=== PATIENT | female | born 1945 ===

== ENCOUNTER → 2018-09-08 | Outpatient (REF) ==
[2018-09-08 13:14] LABS: C-REACTIVE PROTEIN 2.1 mg/dL (0.0-0.9)
[2018-09-08 13:42] LABS: THYROID STIMULATING HORMONE 4.72 uIU/mL (0.465-4.680)
== END ==
LOC: ZLAB.WCH 12:51
PROVIDERS: Internal Medicine
DX: Z01.89 Encounter for other specified special examinations (principal)

== ENCOUNTER → 2018-09-22 | Outpatient (REF) | LOC: ZLAB.WCH 16:01 | DX: Z01.89 Encounter for other specified special examinations (principal) ==

== ENCOUNTER → 2018-11-28 | Outpatient (REF) | LOC: ZLAB.WCH 16:31 | DX: Z01.89 Encounter for other specified special examinations (principal) ==

== ENCOUNTER → 2019-08-14 | Outpatient (CLI) | payer MEDICARE, BC | LOC: MC.RAD 14:19 | DX: Z12.31 Encounter for screening mammogram for malignant neoplasm of breast (principal) ==

== ENCOUNTER 2019-11-04 08:26 | Observation (INO) | payer MEDICARE, BC ==
[~2019-11-04] VITALS: Ht 165.1 cm; Wt 76.1 kg
[2019-11-04] MEDS ORDERED: FLOMAX 0.40.4 MG/CAP PO (08:34)
[2019-11-04 08:54] LABS: COLLECTION METHOD CLEAN CATCH
[2019-11-04 09:03] LABS: BASO # 0.1 (0.0-0.2); BASO % 0.7 % (0.0-2.0); EOS # 0.2 (0.0-0.7); EOS % 1.4 % (0-4.0); GRAN # 8.1 (1.4-6.5); GRAN % 72.9 % (42.2-75.2); LYMPH # 1.5 (1.2-3.4); LYMPH % 13.8 % (20.0-51.0); MEAN CELL VOLUME 97 fl (80.0-100.0); MEAN CORPUSCULAR HEMOGLOBIN 32 pg (27.0-31.0); MEAN CORPUSCULAR HGB CONC 33 g/dl (33.0-37.0); MEAN PLATELET VOLUME 10.3 fl (7.4-10.4); MONO # 1.2 (0.1-0.6); MONO % 10.5 % (1.7-9.3); PLATELET COUNT 320 K/mm3 (130-400); RED BLOOD COUNT 3.46 M/mm3 (4.10-5.30); REDCELL DISTRIBUTION WIDTH-CV 14.9 % (11.5-14.5)
[2019-11-04 09:06] LABS: HEMATOCRIT 33.5 % (37.0-47.0)
[2019-11-04] MEDS ORDERED: SYNTHROID0.05 MG/TA PO (09:10)
[2019-11-04] MEDS ORDERED: NORVASC 5MG5 MG/TAB PO (09:11)
[2019-11-04] MEDS ORDERED: ZYLOPRIM 300MG300 MG PO (09:11)
[2019-11-04] MEDS ORDERED: PRIL40 PO (09:12)
[2019-11-04 09:13] LABS: ALBUMIN 4.2 gm/dL (3.5-5.0); BILIRUBIN,TOTAL 0.5 mg/dL (0.0-1.0); CALCIUM 9.4 mg/dL (8.4-10.2); CREATININE, serum 1.93 (0.52-1.25); POTASSIUM 4.1 mmol/L (3.4-5.0); TOTAL PROTEIN 7.2 gm/dL (6.4-8.2)
[2019-11-04] MEDS ORDERED: CATAPRES 0.1MG0.1 MG PO (09:13)
[2019-11-04] MEDS ORDERED: COZAAR100 MG PO (09:13)
[2019-11-04] MEDS ORDERED: TOPROL XL 50MG50 MG PO (09:14)
[2019-11-04] MEDS ORDERED: EVISTA 60MG60 MG/TAB PO (09:15)
[2019-11-04 09:27] LABS: MUCOUS Present /lpf; PH 5 (5-8); SQUAMOUS EPITHELIAL 0-2 /hpf; URINE APPEARANCE Hazy; URINE BACTERIA None Seen /hpf; URINE BILIRUBIN Negative (NEGATIVE); URINE BLOOD 3+ (NEGATIVE); URINE COLOR Yellow; URINE GLUCOSE Negative (NEGATIVE); URINE KETONE Negative (NEGATIVE); URINE LEUKOCYTE ESTERASE Negative (NEGATIVE); URINE NITRATE Negative (NEGATIVE); URINE PROTEIN(semi-quant) Negative (NEGATIVE); URINE RBC >50 /hpf; URINE UROBILINOGEN Negative (NEGATIVE)
--- NOTE | 2019-11-04 10:45 | NUR ---
Received patient from ED with right kidney stone. NPO for planned surgery today. VSS. No c/o pain or nausea at this time. Spouse at bedside.
[2019-11-04 11:01] VITALS: BP 156/67; PULSE 89; TEMP 97.5
--- NOTE | 2019-11-04 13:30 | NUR ---
Medicated for pain and nausea with relief.
--- NOTE | 2019-11-04 15:15 | NUR ---
To surgery per bed with OR staff.
[2019-11-04 17:10] VITALS: BP 134/60; PULSE 78; TEMP 97.9
--- NOTE | 2019-11-04 17:10 | NUR ---
Returned to room from PACU. VSS. Ambulatory to bathroom and voided pink tinged urine without difficulty. No c/o pain or nausea. Spouse at bedside.
[2019-11-04 17:25] VITALS: BP 142/62; PULSE 79
[2019-11-04 17:45] VITALS: BP 146/71; PULSE 78
[2019-11-04 18:15] VITALS: BP 110/93; PULSE 83
[2019-11-04 19:19] VITALS: BP 138/73; PULSE 79
--- NOTE | 2019-11-04 19:25 | NUR ---
Pt. has met discharge criteria. Pt. given discharge paper work. Pt. voices understanding. Pt. denies needs. Escorted out by HARRISON Baxter.
== END 2019-11-04 19:15 | disposition home or self-care (01) ==
LOC: COL.ER 08:26 → SURG 09:41
PROVIDERS: Physician Assistant; ADMIT Urology
DX: N20.1 Calculus of ureter (principal); M19.90 Unspecified osteoarthritis, unspecified site; I10 Essential (primary) hypertension; M35.3 Polymyalgia rheumatica; K21.9 Gastro-esophageal reflux disease without esophagitis; Z90.710 Acquired absence of both cervix and uterus; Z79.52 Long term (current) use of systemic steroids; Z87.891 Personal history of nicotine dependence; Z83.3 Family history of diabetes mellitus; Z80.9 Family history of malignant neoplasm, unspecified
CPT/HCPCS: A4216; C1769; C2617; G0378; J0690; J0696; J1100; J1885; J2270; J2405; J2704; J3010; J7030; J7120; Q9967